=== PATIENT | male | born 1985 | race Caucasian/White ===

== ENCOUNTER 2022-05-23 14:06 | Emergency (ER) | payer BC, SELFPAY ==
[2022-05-23 14:16] VITALS: BP 160/98; PULSE 88; RESP 18; TEMP 36.3; O2SAT 99; BMI 34.3
--- NOTE | 2022-05-23 14:49 | ED.NURSE ---
ekg done at 1425
[2022-05-23 15:00] VITALS: BP 132/80; PULSE 76; O2SAT 100
--- NOTE | 2022-05-23 15:09 | ED.CHESTPAIN ---
HPI - Chest Pain General Chief Complaint: Chest Pain Stated Complaint: chest pain Time Seen by Provider: 05/23/22 14:34 History of Present Illness HPI narrative: This 37-year-old male comes in reporting brief episodes of chest discomfort that started yesterday morning. He states that he woke up with that feeling a twinge of pain along the left sternal border that lasted a few seconds. He states that he has had similar brief episodes of pain on and off since then. These last for just a few seconds. Currently he is not having any symptoms. He denies having any nausea, vomiting, lightheadedness, shortness of breath, or diaphoresis. He does not have any exercise intolerance. He does not also have any cardiac risk factors. Related Data Home Medications Medication Instructions Recorded Confirmed lisinopril 40 mg tablet mg 05/23/22 omeprazole 20 mg capsule,delayed 20 mg PO DAILY 05/23/22 05/23/22 release Allergies Allergy/AdvReac Type Severity Reaction Status Date / Time No Known Drug Allergies Allergy Verified 05/23/22 14:22 Review of Systems Status of ROS Reports: 10 or more systems reviewed and unremarkable except as noted in History and below Narrative Constitutional: No fevers, no weight gain or loss. Eyes: No discharge. No vision changes. HENT: No congestion, no sore throat, no ear pain. Cardiovascular: No palpitations. Brief episodes of chest discomfort along the left sternal border as described above. Respiratory: No shortness of breath, no wheezes, no cough. Gastrointestinal: No abdominal pain, no vomiting, no diarrhea. Genitourinary: No dysuria, no hematuria. Musculoskeletal: Normal range of motion. Skin: No rashes, no pruritis. Neurological: No dizziness, weakness, sensory change, speech change. Endo/Heme/Allergies: No bruising or bleeding. No polydipsia. Pysch: no suicidality, no anxiety, no insomnia. All other systems reviewed and are negative. PFSH PFSH Social History Smoking Status: Former smoker How often do you have a drink containing alcohol: monthly or less AUDIT-C Alcohol total score: 1 Non-prescribed substance use: denies use Exam Narrative Exam Narrative: Constitutional: Well-developed, well-nourished, no acute distress. HEENT: Normocephalic, atraumatic. Neck: Normal range of motion. Nontender. Supple. Heart: Regular. No murmurs. Normal rate. Intact distal pulses. Lungs: Clear to auscultation. No chest discomfort. No wheezes, rhonchi, or rales. Abdomen: Normal bowel sounds. Nontender. No rebound tenderness. Genitalia: Deferred. Back: No midline tenderness. Normal range of motion. Extremities: Normal range of motion. No injury. Skin: Intact. No rash. Warm. No erythema or pallor. Neurologic: No altered sensation. No weakness. Alert and oriented. Psychiatric: No suicidality. No anxiety or depression. No insomnia. Nursing notes and vitals signs are reviewed. Const Vital Signs, click to edit/add: Vital Signs - 24 hr 05/23/22 14:16 Temperature 97.4 F L Pulse Rate [Pulse Oximeter] 88 Respiratory Rate 18 Blood Pressure [Right Upper Arm] 160/98 H Pulse Oximetry 99 Oxygen Delivery Method Room Air Course Vital Signs Vital signs: Initial Vital Signs Temperature 97.4 F L 05/23/22 14:16 Temperature Source Temporal Artery Scan 05/23/22 14:16 Pulse Rate 88 05/23/22 14:16 Respiratory Rate 18 05/23/22 14:16 Blood Pressure 160/98 H 05/23/22 14:16 Blood Pressure Mean 118 05/23/22 14:16 Blood Pressure Position Supine 05/23/22 14:16 Pulse Oximetry 99 05/23/22 14:16 Oxygen Delivery Method 05/23/22 14:16 Vital Signs Temperature 97.4 F L 05/23/22 14:16 Pulse Rate 88 05/23/22 14:16 Respiratory Rate 18 05/23/22 14:16 Blood Pressure 160/98 H 05/23/22 14:16 Pulse Oximetry 99 05/23/22 14:16 Oxygen Delivery Method 05/23/22 14:16 Temperature 97.4 F L 05/23/22 14:16 Pulse Rate 88 05/23/22 14:16 Respiratory Rate 18 05/23/22 14:16 Blood Pressure 160/98 H 05/23/22 14:16 Pulse Oximetry 99 05/23/22 14:16 Oxygen Delivery Method 05/23/22 14:16 MDM - Chest Pain MDM Narrative Medical decision making narrative: This patient comes in reporting brief episodes of chest pain along the left sternal border lasting just a few seconds. He does not have any cardiac risk factors. EKG shows normal sinus rhythm. Lab results also returned in normal range. In particular his troponin is 0. The brief nature of the chest pain lasting just a few seconds is not characteristic of a cardiac or pulmonary cause. These results are communicated with the patient who is reassured with these findings. At the time of discharge the patient appears safe for outpatient management. The treatment plan is reviewed along with written and verbal return precautions. Reasons to return and the importance of close followup were also reviewed. Lab Data Labs: Lab Results 05/23/22 05/23/22 05/23/22 Range/Units 15:25 15:25 15:25 WBC 7.48 (4.50-11.00) K/uL RBC 5.19 (4.30-5.90) m/uL Hgb 15.3 (13.5-17.5) gm/dL Hct 44.4 (37.0-53.0) % MCV 86 (80-100) fL MCH 30 (26-34) pg MCHC 35 (32-36) gm/dL RDW Coeff of Abdullahi 12.7 (11.5-15.5) % Plt Count 246 (140-440) K/uL Neut % (Auto) 51.3 (42.0-72.0) % Lymph % (Auto) 39.6 (20-44) % [place] % (Auto) 8.2 (0.0-11.0) % Eos % (Auto) 0.5 (0.0-7.0) % Baso % (Auto) 0.3 (0.0-3.0) % Neut # (Auto) 3.84 (1.7-7.0) K/uL Lymph # (Auto) 2.96 H (0.90-2.90) K/uL [place] # (Auto) 0.60 (0.00-0.90) K/UL Eos # (Auto) 0.04 (0.00-0.50) K/uL Baso # (Auto) 0.02 (0.00-0.30) K/uL Sodium 141 (135-149) mmol/L Potassium 3.9 (3.6-5.1) mmol/L Chloride 107 (96-114) mmol/L Carbon Dioxide 27 (20-32) mmol/L BUN 12 (5-24) mg/dL Creatinine 0.8 (0.5-1.5) mg/dL Estimated Creat Clear 140.10 Estimated GFR 115 ml/min Glucose 85 (60-115) mg/dL Calcium 9.0 (8.4-10.6) mg/dL POC Troponin I 0.00 L (0.01-0.04) ng/ml ECG Data Attestation: I personally reviewed and interpreted this ECG as follows: Interpretation: Normal sinus rhythm. Rate is 79 beats per minute. There are no ST or T-wave abnormalities. Discharge Plan Discharge Clinical Impression: Atypical chest pain Patient Disposition: Home, Self-Care Condition: Stable Additional Instructions: Use [id number] medicines as needed and directed. Follow up with MD or return if worsening. Prescriptions: No Action lisinopril 40 mg tablet Label Comments: TAKE ONE TABLET BY MOUTH ONE TIME DAILY omeprazole 20 mg capsule,delayed release(DR/EC) 20 mg PO DAILY Follow Up/Referrals: Provider,Not a Local [Primary Care Provider] - Stand Alone Forms: [facility] Info Instructions
[2022-05-23 15:47] LABS: Basophils Absolute Auto 0.02 K/uL (0.00-0.30); Basophils Percent Auto 0.3 % (0.0-3.0); Eosinophils Absolute Auto 0.04 K/uL (0.00-0.50); Eosinophils Percent Auto 0.5 % (0.0-7.0); Hematocrit 44.4 % (37.0-53.0); Hemoglobin* 15.3 gm/dL (13.5-17.5); Immature Granulocytes Abs Auto 0.01 K/uL (0.00-0.30); Immature Granulocytes Pct Auto 0.1 %; Lymphocytes Absolute Auto 2.96 K/uL (0.90-2.90); Lymphocytes Percent Auto 39.6 % (20-44); Mean Corpuscular HGB Conc 35 gm/dL (32-36); Mean Corpuscular Hemoglobin 30 pg (26-34); Mean Corpuscular Volume 86 fL (80-100); Monocytes Percent Auto 8.2 % (0.0-11.0); Neutrophils Absolute Auto 3.84 K/uL (1.7-7.0); Neutrophils Percent Auto 51.3 % (42.0-72.0); Platelet Count* 246 K/uL (140-440); RDW Coefficient of Variation % 12.7 % (11.5-15.5); Red Blood Count 5.19 m/uL (4.30-5.90); White Blood Count* 7.48 K/uL (4.50-11.00)
[2022-05-23 15:54] LABS: Slide Review Reflex No
[2022-05-23 16:00] VITALS: BP 144/97; PULSE 72; RESP 16; O2SAT 97
[2022-05-23 16:20] LABS: Chloride* 107 mmol/L (96-114); Sodium* 141 mmol/L (135-149)
[2022-05-23 16:21] LABS: Potassium* 3.9 mmol/L (3.6-5.1)
[2022-05-23 16:23] LABS: Creatinine* 0.8 mg/dL (0.5-1.5); Estimated Glomerular Filt Rate 115 ml/min
[2022-05-23 16:24] LABS: Blood Urea Nitrogen* 12 mg/dL (5-24); Carbon Dioxide* 27 mmol/L (20-32); Glucose* 85 mg/dL (60-115)
== END 2022-05-23 16:36 | disposition home or self-care (01) ==
PROVIDERS: Emergency Provider Emergency Medicine Emergency Medical Services
DX: R07.89 Other chest pain (principal)
CPT/HCPCS: 36415; 80048; 84484; 85025; 93005; 99284